=== PATIENT | male | born 1965 | race Caucasian/White ===

== ENCOUNTER → 2017-07-17 | Outpatient (CLI) | payer BC ==
[~2017-07-17] VITALS: Ht 174 cm; Wt 87.5 kg
[~2017-07-17] MED LIST: FLONASE SENSIM9.9 ML BOTH NARES
== END | disposition home or self-care (01) ==
LOC: AMB 08:21
PROC: 0DBN8ZX Excision of Sigmoid Colon, Via Natural or Artificial Opening Endoscopic, Diagnostic (ICD-10-PCS; principal; 2017-07-17)
DX: Z12.11 Encounter for screening for malignant neoplasm of colon (principal); D12.5 Benign neoplasm of sigmoid colon; K63.5 Polyp of colon; K64.8 Other hemorrhoids; Z87.891 Personal history of nicotine dependence
CPT/HCPCS: 88305; 93005; J2250